=== PATIENT | female | born 1945 | race Caucasian/White ===

== ENCOUNTER 2016-03-25 05:28 | Day surgery (SDC) | payer OTHER ==
[~2016-03-25] VITALS: Ht 162.6 cm; Wt 99.8 kg
--- NOTE | ~2016-03-25 | S ---
[facility] [place] [address] SURGICAL PATH RPT PROCEDURE Name: RAINER FRANCIS Room #: [facility].#: [id number] Admission: 03/25/16 Date of : 41 Discharge: 03/26/16 Report #: [id number] Path Case #: [id number] PATHOLOGY REPORT COLLECTION DATE: 03/25/2016 RECEIVED DATE: 03/25/2016 SUBMITTING PHYS: Dr. Pavan Zeng OTHER PHYS: Dr. Katalina Osman SPECIMEN(S) RECEIVED: A.Left inferior parathyroid * * * * * * * * * * * * FINAL DIAGNOSIS: "Left inferior parathyroid", excision: - Hypercellular parathyroid gland weighing 0.6 grams. - Thymus tissue with mild lymphoid hyperplasia and otherwise minimal histologic alterations. COMMENT: The patient has a history of parathyroid tissue with hyperplasia and multinodular architecture ([id number]). Correlation with clinical history and additional laboratory data is recommended. (CLW:all; d/t: 03/26/2016) PATHOLOGIST: Elena Cheek M.D. REPORT ELECTRONICALLY SIGNED BY: Elena Cheek M.D. DATE/TIME: 03/26/2016 16:46 * * * * * * * * * * * * GROSS PATHOLOGY: The specimen is received fresh from the OR labeled "Rainer Francis, left inferior parathyroid." It consists of a red-freeman lobular parathyroid gland weighing 0.6 grams and measuring 1.3 x 1.1 x 0.6 cm. The external surface is smooth and inked blue. The capsule is intact. The specimen is bisected and one-half is submitted for one frozen section. The frozen section and the unfrozen portion is entirely submitted as A1. (CLW:mgr; d/t: 03/25/16) FROZEN SECTION DIAGNOSIS: (Monty Cheek M.D.) "Left inferior parathyroid": - Hypercellular parathyroid gland weighing 0.6 grams. The case is discussed with Dr. Pavan Zeng, and a written report is placed in the patient's chart. (CLW:mgr; d/t: 03/25/16) [address] [place] [address] SURGICAL PATH RPT PROCEDURE Name: RAINER FRANCIS Room #: [facility]#: [id number] Admission: 03/25/16 Date of : 41 Discharge: 03/26/16 Report #: [id number] Path Case #: [id number] Testing performed by [facility] at [facility] [address] [place] [address] CLINICAL HISTORY: Hyperparathyroidism secondary. INITIAL CPT CODE(S): A; 40443, 30225, 77615 Professional services performed by [facility] at [facility] [address] [place] [address] Technical services performed by [facility] at [address] [place] [address], [address], [place] [address]. [facility] [address] [address] PHONE: [phone] DIRECTOR: Norberto Marin M.D. * * * END OF REPORT * * *
--- NOTE | ~2016-03-25 | H ---
[facility] [place] [address] HISTORY AND PHYSICAL Name: RAINER FRANCIS Room #: 403-P [facility]..#: [id number] Admission: 03/25/16 Attend Phys: Pavan Zeng MD Discharge: Date of : 41 Report #: [id number] THIS REPORT FOR: //name// CC: Katalina Zeng DATE OF SERVICE: 03/25/2016 CHIEF COMPLAINT: The patient presents for parathyroidectomy by Dr. Pavan Zeng. HISTORY OF PRESENT ILLNESS: The patient has CKD with a baseline creatinine of 1.72. She developed hyperparathyroidism which is felt to be primary hyperparathyroidism. She underwent a removal of her adenoma, but her PTH remained at 400. She now comes back and another adenoma is found and that is removed. Her intraoperative PTH falling from 400-57. Postoperative calcium is 8.8. PAST MEDICAL HISTORY: Longstanding asthma with COPD, right-sided CHF, tricuspid insufficiency, longstanding hypertension, diabetes, proteinuria, chronic kidney disease. She also has arthritis, chronic low back syndrome, discoid lupus, gout, and fibromyalgia. PAST SURGICAL HISTORY: Includes bilateral total knee replacements. ALLERGIES: ALLOPURINOL, PENICILLIN, VANCOMYCIN, BYETTA, CEFACLOR, CEFADROXIL, CEFPROZIL, CEPHALEXIN, CODEINE, DIAZEPAM, DILTIAZEM, ERYTHROMYCIN, FENTANYL, FUROSEMIDE, JANUVIA, ULORIC, VERSED, VIOXX, CEFTRIAXONE, ADHESIVE TAPE and NICKEL. FAMILY HISTORY: Positive strongly for hypertension. SOCIAL HISTORY: No cigarettes or alcohol. Lives at home with her . REVIEW OF SYSTEMS: GENERAL: She has been having a bunch of itching lately. HEENT: Vision okay. Hearing okay. Swallowing okay. No mouth sores or ulcers. ENDOCRINE: Positive for diabetes and thyroid disease. RESPIRATORY: Occasional wheezing and asthma. CARDIAC: Denies chest pain, palpitations. Does get occasional leg swelling. GASTROINTESTINAL: No recent nausea, vomiting or bloody stools. GENITOURINARY: Good urinary stream. No hematuria or dysuria. NEUROLOGIC: No peripheral neuropathy, seizure, syncope or stroke. HOME MEDICATIONS: Include Protonix 40 mg daily, aspirin 81 mg daily, Tradjenta 5 mg daily, Plaquenil 200 mg every other day, glimepiride 1 mg daily, hydralazine 25 mg q.i.d., insulin, torsemide 10 mg daily, clonidine 0.[address] [address] HISTORY AND PHYSICAL Name: RAINER FRANCIS Room #: 403-P [facility].#: [id number] Admission: 03/25/16 Attend Phys: Pavan Zeng MD Discharge: Date of : 41 Report #: [id number] bedtime. PHYSICAL EXAMINATION: VITAL SIGNS: Reasonably healthy appearing woman, somewhat pale, seen postoperatively in the recovery room. SKIN: Unremarkable. SKELETAL: Somewhat overweight. HEENT: Extraocular movements are full. Vision is intact. No scleral icterus. Hearing intact. Mucous membranes dry. NECK: Supple, no carotid bruits. CHEST: Shows slightly diminished breath sounds at the bases. HEART: Regular. ABDOMEN: Soft and nontender. EXTREMITIES: No edema. NEUROLOGIC: Grossly intact. LABORATORY DATA: Creatinine 1.7, BUN 39, potassium 3.6, calcium 9.6 preoperatively, 8.8 postoperatively. ASSESSMENT: 1. Hyperparathyroidism. She had a couple of parathyroid adenomas. The second is now removed. Her PTH is down. Hopefully, her hypercalcemia will be better, her bone strength will be better. 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 2. Diabetic nephropathy with proteinuria and baseline creatinine is 1.7. 3. Hypertension. 4. Asthma. 5. Generalized arthritis. 6. Right-sided congestive heart failure. <ELECTRONICALLY SIGNED> By: Morris Holguin MD 03/26/16 1127 [id number] 1713 Morris Holguin MD /nt
--- NOTE | ~2016-03-25 | O ---
[facility] [place] [address] OPERATIVE REPORT Name: RAINER FRANCIS Room #: [facility] M..#: [id number] Admission: 03/25/16 Attend Phys: Pavan Zeng MD Discharge: 03/26/16 Date of : 41 Report #: [id number] THIS REPORT FOR: //name// CC: Katalina Zeng DATE OF SERVICE: 03/25/2016 SURGEON: Pavan Zeng M.D. PREOPERATIVE DIAGNOSES: 1. Persistent hypercalcemia. 2. Probable secondary hyperparathyroidism. 3. Renal failure. POSTOPERATIVE DIAGNOSES: 1. Persistent hypercalcemia. 2. Probable secondary hyperparathyroidism. 3. Renal failure. OPERATIONS PERFORMED: 1. Parathyroidectomy, revision. 2. Nerve integrity monitoring times 2 hours. INDICATIONS: The patient is a 71-year-old female, referred by her brick setter, Dr. Holguin, with hypercalcemia and that has not been treatable medically in the face of renal disease. Initially, she presented with lab findings consistent with primary hyperparathyroidism, even though she is renal patient. She was brought to surgery and underwent parathyroidectomy, 12/25/2015, with 2 large adenomas noted and another normal-sized parathyroid on the left side. The patient had an uncomplicated convalescence, but was noted to have persistent and increasing hypercalcemia. Fresh workup was done, showing an area in the left lower neck consistent with a parathyroid adenoma. Recommendations were made for revision parathyroidectomy. The patient's parathyroid was over 400 with a calcium of 9.9. DESCRIPTION OF PROCEDURE: The patient was brought to the operating room and placed supine on the operating table. After adequate general anesthesia was achieved via a nerve integrity monitoring endotracheal tube, her shoulder was placed and the neck was extended. Planned incision was marked out in the previous incision and injected with 1% Xylocaine with 1:100,000 epinephrine. Complicating her neck exploration was a history of a previous right carotid endarterectomy with significant scarring. As a separate part of the procedure, the electrodes from the endotracheal tube were hooked to the nerve integrity [facility] [address] [place] [address] OPERATIVE REPORT Name: RAINER FRANCIS Room #: [facility] M.R.#: [id number] Admission: 03/25/16 Attend Phys: Pavan Zeng MD Discharge: 03/26/16 Date of : 41 Report #: [id number] monitor. Ground electrodes were placed in the soft tissue overlying the sternum and contralateral shoulder. The electrode resistance and impedance was measured and found to be acceptable. Threshold and stimulus intensity parameters were set and the patient was monitored for the entirety of the case, approximately 2 hours in order to locate and protect the recurrent laryngeal nerve. She was then prepped and draped in a sterile fashion. The procedure began with an incision through skin and subcutaneous tissue and platysma. Subplatysmal flaps were elevated superiorly and inferiorly. There was a great deal of scar present. The dissection was made vertically in the midline and the strap muscles were retracted laterally. Beginning on the patient's left side, which was the site of interest from the sestamibi scan and from the ultrasound, dissection began along the inferior border of the thyroid. No parathyroid was noted. The dissection then continued down the inferior parathyroid artery into the area just below the manubrium. A suspicious mass was found just behind the clavicular head. This was confirmed with the gamma probe. Using meticulous hemostatic technique, this was dissected. Afferent and efferent vessels clipped in Ligaclips and divided. The gland was revealed. This measured about roughly a centimeter in size. Pathology did reveal a hypercellular parathyroid measuring 0.6 gram. The patient had a preoperative iPTH of 422. Fifteen minutes after this was removed, the iPTH was returned at a level of 57, showing complete removal. While waiting for this, exploration was made of the opposite right side extending down below the clavicle. No other mass was found on this side and there was no uptake from the gamma probe. Previously, both superior parathyroids had been found and removed. Because of the positive outcome from the iPTH, the procedure was ended. Hemostasis was assured with bipolar cautery and clip ligature. The wound was irrigated and then the strap muscles were closed with interrupted 3-0 Vicryl. Prior to closure, a 10-Tristanian Bartolome drain was placed through a separate stab incision, curled into the wound and connected to bulb suction. This was sutured in place with a 2-0 silk. The platysmal layer was then closed with interrupted 3-0 Vicryl and 4-0 Vicryl deep dermal sutures were placed and then a 5-0 running subcuticular Prolene on skin. Mastisol and Steri-Strips were applied followed by an Op-Site. The patient was then returned to anesthesia, awake without difficulty, returned to recovery in good condition. Sponge and needle counts were correct. There were no complications. The blood loss was about 25 mL. The patient will be watched overnight for monitoring. She has been made aware of the possibility of hungry bone syndrome and that she may need to be an inpatient for several days for calcium replacement if necessary. Written and verbal discharge instructions and emergency precautions have been given to her in anticipation of discharge. DISCHARGE MEDICATIONS: Include clindamycin 300 mg t.i.d. for 10 days, hydrocodone/acetaminophen 7.5/325 one to two q. 4-6 hours p.r.n., Phenergan suppository 25 mg 1 per rectum q. 4-6 hours p.r.n. and supplemental calcium with [facility] [address] [place] [address] OPERATIVE REPORT Name: RAINER FRANCIS Room #: [facility] M.R.#: [id number] Admission: 03/25/16 Attend Phys: Pavan Zeng MD Discharge: 03/26/16 Date of : 41 Report #: [id number] Tums 2 tablets t.i.d. She is instructed on light activity and a soft diet. She will follow up with me in one week for suture removal, 48 hours for drain removal. <ELECTRONICALLY SIGNED> By: Pavan Zeng MD 04/07/16 1212 1533 1649 Pavan Zeng MD /nt
[~2016-03-25 05:28] MED LIST: ALBUTEROL2.5 MG/0.1 INH; AMARYL1 MG PO; ASPIR 8181 MG PO; ASTELIN NASAL; CLONIDINE0.1 PO; COLCHICINE0.6 MG PO; DEMADEX10 MG PO; HYDRALAZINE 2525 MG PO; HYDROXYCHLOROQ200 M1 PO; IRON325 PO; L-CARNITINE250 MG PO; LEVEMIR SUBQ; LUTEIN6 MG PO; MAGNESIUM PO; MAGNESIUM400 MG PO; NASACORT10.8 ML NASAL; OMEGA 3 PO; OMEGA-31000 M1 PO; PROTONIX40 M1 PO; RESTASIS1 EACH OPHTHALMIC; TRADJENTA5 MG PO; TUMS PO; VENTOLIN HFA 1818 GM INH; VITAMIN B-12500 MCG PO; VITAMIN B12 PO; VITAMIN D1000 UNI1 PO; ZYRTEC10 M4 PO
[2016-03-25 11:11] LABS: HEMATOCRIT 40.8 % (37.0-47.0); HEMOGLOBIN 13.7 gm/dL (12.0-15.0); MCH 30.6 pg (26.0-34.0); MCHC 33.5 % (28.0-37.0); MCV 91.4 fL (80.0-100.0); RBC 4.46 mil/uL (4.20-5.00); RDW 13.4 % (10.5-14.5)
[2016-03-25 11:32] LABS: CALCIUM 9.6 mg/dL (8.5-10.1); CREATININE 1.7 mg/dL (0.6-1.3); POTASSIUM 3.6 mmol/L (3.5-5.1)
[2016-03-25 11:38] LABS: ALBUMIN 3.6 g/dL (3.4-5.0); TOTAL BILIRUBIN 0.4 mg/dL (<0.1-1.0); TOTAL PROTEIN 6.9 g/dL (6.4-8.2)
[2016-03-25 16:23] LABS: ALBUMIN 3.3 g/dL (3.4-5.0); CALCIUM 8.8 mg/dL (8.5-10.1); MAGNESIUM 2.1 mg/dL (1.8-2.4)
[2016-03-25 17:00] VITALS: BP 144/63
[2016-03-25 19:30] VITALS: BP 144/81
[2016-03-25 23:25] VITALS: BP 126/69
[2016-03-26 03:30] VITALS: BP 123/71
[2016-03-26 08:00] VITALS: BP 121/57
[2016-03-26 14:56] VITALS: BP 121/57
== END 2016-03-26 15:45 | disposition home or self-care (01) ==
LOC: OR 05:28 → 4N 05:28 → TBA 05:29 → OR 13:03 → 4N 17:18 → OR 03-26 15:45
PROVIDERS: Otolaryngology Plastic Surgery within the Head & Neck
DX: E21.3 Hyperparathyroidism, unspecified (principal); I13.10 Hypertensive heart and chronic kidney disease without heart failure, with stage 1 through stage 4 chronic kidney disease, or unspecified chronic kidney disease; N18.3 Chronic kidney disease, stage 3 (moderate); J45.909 Unspecified asthma, uncomplicated; E78.00 Pure hypercholesterolemia, unspecified; D64.9 Anemia, unspecified; K21.9 Gastro-esophageal reflux disease without esophagitis; M79.7 Fibromyalgia; M19.90 Unspecified osteoarthritis, unspecified site; I50.9 Heart failure, unspecified; J44.9 Chronic obstructive pulmonary disease, unspecified; E11.9 Type 2 diabetes mellitus without complications; Z79.4 Long term (current) use of insulin; M10.9 Gout, unspecified; Z98.42 Cataract extraction status, left eye; Z98.41 Cataract extraction status, right eye; Z96.1 Presence of intraocular lens; Z96.642 Presence of left artificial hip joint; Z98.890 Other specified postprocedural states; Z96.653 Presence of artificial knee joint, bilateral
CPT/HCPCS: 50010; 50101; 50331; 50386; 50417; 52190; 52220; 52225; 56524; 56526; 56528; 56760; 57006; 62110; 62900; 70005